=== PATIENT | female | born 1955 | race Caucasian/White ===

== ENCOUNTER → 2017-03-31 | Outpatient (CLI) | payer OTHER | LOC: BMCIMAGING 08:19 | PROVIDERS: ATTEND Obstetrics & Gynecology | DX: Z12.31 Encounter for screening mammogram for malignant neoplasm of breast (principal) | CPT/HCPCS: G0202 ==

== ENCOUNTER → 2017-10-06 | Outpatient (CLI) | payer OTHER | LOC: FIMAGING 06:53 | PROVIDERS: ATTEND Obstetrics & Gynecology | DX: R93.8 Abnormal findings on diagnostic imaging of other specified body structures (principal); N93.8 Other specified abnormal uterine and vaginal bleeding; Z78.0 Asymptomatic menopausal state ==

== ENCOUNTER → 2018-04-01 | Outpatient (CLI) | payer OTHER | LOC: BMCIMAGING 08:42 | PROVIDERS: ATTEND Obstetrics & Gynecology | DX: Z12.31 Encounter for screening mammogram for malignant neoplasm of breast (principal) ==

== ENCOUNTER → 2018-04-08 | Outpatient (CLI) | payer OTHER | END | disposition home or self-care (01) | LOC: FIMAGING 07:57 | PROVIDERS: ATTEND Obstetrics & Gynecology | DX: R93.89 Abnormal findings on diagnostic imaging of other specified body structures (principal) ==